=== PATIENT | male | born 1960 | race Hispanic/Latino ===

== ENCOUNTER → 2018-10-22 | Outpatient (CLI) | payer OTHER ==
[~2018-10-22] MED LIST: REGADENOSON 0.4 MG/5 ML PF SYG IVP SCH
== END | disposition home or self-care (01) ==
LOC: EEVIPCON 08:38 → RAH 08:38
PROVIDERS: ATTEND Internal Medicine Cardiovascular Disease
DX: I11.9 Hypertensive heart disease without heart failure (principal); I25.89 Other forms of chronic ischemic heart disease; R94.31 Abnormal electrocardiogram [ECG] [EKG]
CPT/HCPCS: 78452; 93017; 93306; 96374; A9500 ×2; J2785

== ENCOUNTER 2018-12-21 07:03 | Day surgery (SDC) | payer OTHER ==
[2018-12-17 11:00] VITALS: BP 143/98
[2018-12-17 12:46] LABS: EOSINOPHILS % (AUTO) 1.7 % (0.0-8.0); HEMATOCRIT 48.4 % (42-54); LYMPHOCYTES % (AUTO) 15.9 % (21.0-51.0); MEAN CORPUSCULAR HEMOGLOBIN 28.8 pg (27.0-33.0); MEAN CORPUSCULAR VOLUME 84.8 fL (79-99); MONOCYTES % (AUTO) 8.1 % (3.0-13.0); NEUTROPHILS % (AUTO) 73.3 % (40.0-77.0); NUCLEATED RED BLOOD CELLS 0.1 % (0.0-0.19); PLATELET COUNT (AUTO) 250 K/uL (130-400); RED BLOOD CELL COUNT(AUTO) 5.71 MIL/uL (4.50-6.20); WHITE BLOOD COUNT (AUTO) 9.1 K/uL (4.8-10.8)
[2018-12-17 12:55] LABS: CREATININE 1.1 mg/dL (0.5-1.5); POTASSIUM 3.2 mmol/L (3.5-5.1)
[2018-12-17 12:59] LABS: INR 0.98 (0.85-1.15); PARTIAL THROMBOPLASTIN TIME 27.8 SEC (26.3-35.5); PROTHROMBIN TIME 10.3 SEC (9.6-11.6)
[2018-12-17 13:04] LABS: APPEARANCE,URINE Clear (CLEAR); BILIRUBIN,URINE Negative (NEGATIVE); COLOR,URINE Yellow (YELLOW); GLUCOSE, URINE (UA) 250 mg/dL (NEGATIVE); KETONES,URINE Negative (NEGATIVE); LEUKOCYTE ESTERASE ,URINE Negative (NEGATIVE); NITRATE,URINE Negative (NEGATIVE); OCCULT BLOOD,URINE Negative (NEGATIVE); PROTEIN,URINE POS 1+ mg/dL (NEGATIVE)
[2018-12-17 13:12] LABS: BACTERIA,URINE Few /HPF (None Seen); RBC,URINE None Seen /HPF (0-1); WBC,URINE 0-1 /HPF (0-1)
--- NOTE | 2018-12-20 11:58 | NUR ---
EMELINA CORRIGAN, NOTIFIED OF ABNORMAL POTASSIUM, CL LEVELS, NEW ORDERS TO REPEAT BMP IN AM.
[~2018-12-21] VITALS: Ht 167.6 cm; Wt 107.3 kg
[2018-12-21] VITALS (11 sets, daily range): BP systolic 130–199; BP diastolic 82–104
[~2018-12-21 07:03] MED LIST changes: +ACET325C3 PO; +AMLO10TA7 PO; +ASPI-1181 PO; +GLIP10TA9 PO; +GLIP5TAB11 PO; +HYDRODIURIL PO; +LISI40TA4 PO; +METF-446 PO; +METO25TA6 PO; -REGADENOSON 0.4 MG/5 ML PF SYG IVP SCH; +SIMV20TA6 PO
[2018-12-21 07:49] LABS: CREATININE 1.1 mg/dL (0.5-1.5); POTASSIUM 3.2 mmol/L (3.5-5.1)
[2018-12-21] MEDS ORDERED: SODIUM CHLORIDE 0.9% 1000ML 1,000 ML IV SCH ×2 (08:00→11:52)
--- NOTE | 2018-12-21 08:45 | NUR ---
FAUZIA Johnson from [facility] notified that pt's potassium from today's lab remains the same at 3.2
--- NOTE | 2018-12-21 10:04 | NUR ---
[facility] CALLED, SPOKE WITH MEENU TARANGO NOTIFIED HIM OF PT'S POTASSIUM OF 3.2, EMELINA STATED THAT IT WAS FINE.
--- NOTE | 2018-12-21 10:45 | NUR ---
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 Guards at bedside.
[2018-12-21] MEDS ORDERED: IOHEXOL-350 50ML VIAL IV ONE (11:04)
[2018-12-21] MEDS ORDERED: IOHEXOL 350 MG/ML 100ML INFUS..BTL IV ONE (11:04)
[2018-12-21] MEDS ORDERED: NITROGLYCERIN 5 MG/ML 10 ML VIAL IV ONE (11:04)
[2018-12-21] MEDS ORDERED: LIDOCAINE HCL 2% 20ML ONE (11:04)
[2018-12-21] MEDS ORDERED: HEPARIN SODIUM 1000UNIT/ML 10ML VIAL ONE (11:04)
[2018-12-21] MEDS ORDERED: SODIUM BICARB 50MEQ 50ML VIAL ONE (11:04)
[2018-12-21] MEDS ORDERED: POTASSIUM CHLORIDE 20MEQ/100ML 100 ML IV ONE (11:24)
[2018-12-21] MEDS ORDERED: GLUCAGON 1MG KIT 1 MG ML IM PRN (12:00)
[2018-12-21] MEDS ORDERED: DEXTROSE 50%-WATER 50 ML DISP.SYRIN IV PRN (12:00)
--- NOTE | 2018-12-21 14:00 | NUR ---
PT EXPERIENCING BURNING TO IV SITE FROM POTASSIUM INFUSION DESPITE ITS SLOW INFUSION RATE. NOTIFIED MEENU TARANGO. PT HAS ALREADY RECEIVED HALF. PERMISSION TO STOP REMAINDER AND GIVE PT 20 MEQ PO.
--- NOTE | 2018-12-21 14:04 | NUR ---
IV infusion of Potassium stopped, IV flushed, no signs of redness at site. Fluids continue at 150 mls/hr.
[2018-12-21] MEDS ORDERED: POTASSIUM CHLORIDE 20 MEQ ERTAB PO PRN (14:30)
[2018-12-21] MEDS ORDERED: POTASSIUM CHLORIDE 10% ELIXIR 20 MEQ/15 ML UDCUP PO PRN (14:30)
[2018-12-21] MEDS ORDERED: INSULIN HUMULIN R 100 UNIT/ML 3ML SQ SCH (16:30)
--- NOTE | 2018-12-21 16:30 | NUR ---
PT discharged home, tolerating fluids/solids well, voiding well. Pt denies any severe pain, nausea or dizziness. Instructions given in [place] and translated by assisted guards. Pt and guards report no further questions at this time. Pt reminded to hold Metformin for 48 hours after the procedure. Pt also reminded in routine and emergency care of groin site. Prescriptions given to the guard.
== END 2018-12-21 16:30 ==
LOC: CLH 07:03 → DAH 07:03 → EEVIPCON 11:00 → CLH 16:30
PROVIDERS: ATTEND Internal Medicine Cardiovascular Disease
DX: I25.10 Atherosclerotic heart disease of native coronary artery without angina pectoris (principal); E11.9 Type 2 diabetes mellitus without complications; I10 Essential (primary) hypertension; E78.5 Hyperlipidemia, unspecified; E66.9 Obesity, unspecified; Z79.01 Long term (current) use of anticoagulants; Z90.49 Acquired absence of other specified parts of digestive tract; Z79.84 Long term (current) use of oral hypoglycemic drugs; Z79.899 Other long term (current) drug therapy
CPT/HCPCS: 36415 ×2; 71045; 80048 ×2; 81001; 82948 ×2; 85025; 85610; 85730; 93005; 93458; A4215; A4216; A4221; A4222; A4223 ×3; A4606; C1760; C1894; J1644; J3480; J3490 ×3; Q9967 ×2